=== PATIENT | female | born 2005 | race Caucasian/White ===

== ENCOUNTER 2023-06-04 09:33 | Outpatient (CLI) | payer SELFPAY | END 2023-06-04 09:34 | disposition home or self-care (01) | LOC: NFLDREF 06-05 14:32 | PROVIDERS: PCP Physician Assistant; Referring Provider Physician Assistant; Visit Provider Registered Nurse | DX: A74.9 Chlamydial infection, unspecified (principal) | CPT/HCPCS: 87491; 87591 ==